=== PATIENT | female | born 1970 | race Caucasian/White ===

== ENCOUNTER 2022-08-17 14:34 | Outpatient (CLI) | payer BC, SELFPAY ==
[2022-08-17 18:30] LABS: TSH With Reflex to FT4* 0.481 uIU/mL (0.270-4.200)
[2022-08-20 01:00] LABS: Free T3 2.9 pg/mL (2.5-4.3); Total T3 114 ng/dL (80-200)
[2022-08-20 15:56] LABS: T3 Reverse - LC-MS/MS 15.5 ng/dL (9.0-27.0); T3, Ratio (T3:RT3) 6.6 (4.2-11.0); T3, Total - LC-MS/MS 103 ng/dL (80-200)
== END 2022-08-17 14:35 | disposition home or self-care (01) ==
LOC: NFLDREF 14:34
PROVIDERS: PCP Nurse Practitioner Family; Visit Provider Nurse Practitioner Family
DX: E03.9 Hypothyroidism, unspecified (principal)
CPT/HCPCS: 84443; 84480; 84481; 84482

== ENCOUNTER 2023-02-13 08:37 | Outpatient (CLI) | payer BC, SELFPAY ==
--- OUTSIDE RECORDS SUMMARY | 2023-02-13 08:40 | XMS_ITS | Continuity of Care Document ---
Author Name Unknown Organization [facility] Address [address] [place] [address] Phone Care Team Providers Care Counter Dish Carrier Name Role Phone Merlene Thomas Unavailable Unavailable Allergies, Adverse Reactions, Alerts Substance Reaction Status Criticality Penicillins Hives Active No Information Medications Medication Instructions Dosage Effective Dates (start - stop) Status Comments Mobic 15 mg tablet take 1 tablet by oral route every day with food - Active Flexeril 10 mg tablet take 1 tablet by oral route up to 3 times every day as needed for spasm. Do not drive on this medication. - Active LEVOTHYROXINE SODIUM (unknown strength) Not Available - Active Percocet 5 mg-325 mg Tab 1-2 tablets every 4-6 hours - No Longer Active Valium 5 mg Tab every 6-8 hours as needed - No Longer Active Procedures Procedure Date Office/Outpatient Visit,New, Mod 2014 X-Ray Exam Lower Spine 2-3 Views 2014 Office/outpatient visit,est, low 2007 X-ray exam lower spine 2-3 views 2007 Postop followup visit X-ray exam lower spine 2-3 views 2007 Postop followup visit X-ray exam lower spine 2-3 views 2007 Lumbar spine fusion, posterolateral Spine fusion, each add'lvertebra 2007 Lumbar spine fusion w/bone graft 2007 Spinal fusion, ea add'l interspace Insert spine seg fix, post, 3-6 seg Allograft, spine surg, structural Allograft, spine surg, morselized Autograft, spine surgery, local 008 Remove lumbar spine lamina, 1 seg Remove added spine lamina, 1 seg 2007 PA Assist Lumbar spine fusion, posterola teral PA Assist Spine fusion, each add'lverteb ra PA Assist Insert spine seg fix, post, 3- 6 seg PA Assist Remove lumbar spine lamina, 1 seg PA Assist Remove added spine lamina, 1 s eg Office consultation, moderate-high Advance Directives Directive Yes / No Effective Date File Name No Information Encounters Encounter Description Practice Location Reason(s) For Visit Diagnoses Date Provider Providers Copied on Encounter Office/Outpa tient Visit,New, [facility], [address], [place], [place], [id number], [place] tel:[phone] [facility] - [facility] OVERWEIGHTHy pertension, UnspecifiedD egeneration of lumbar or lumbosacral intervertebr al discLumbago 5 Shreyas Blunt. [facility], [address] [place] [address], [id number], [place]. tel:[phone] Referring Provider: Martin Sandhu, [facility] [address] [place] [address], [id number]. tel:[phone] Office/outpa tient visit,est, low Z [facility], [address] [place] [address], [address], [place] tel:[phone] [facility] - [facility] No Information 8 No Information Referring Provider: Grant Garcia, [facility] [address] [place] [address], [place], [address]. tel:[phone] Z [facility], [address] [place] [address], [address], [place] tel:[phone] [facility] [employer] No Information 8 No Information Referring Provider: Grant Garcia, [facility] [address] , [place], [address]. tel:[phone] Z [facility], [address], [place], [address], [place] tel:[phone] [facility] No Information 8 No Information Referring Provider: Grant Garcia, [facility] [address] [place], [address]. tel:[phone] Z [facility], [address], [place], [address], [place] tel:[phone] [facility] No Information 8 No Information Z [facility], [address], [place], [address], [place] tel:[phone] [facility] No Information 8 No Information Referring Provider: Grant Garcia, [facility] [address] [place], [address]. tel:[phone] Office consultation , moderate-hig h Z [facility], [address], [place], [address], [place] tel:[phone] [facility] No Information 8 No Information Referring Provider: Grant Garcia, [facility] [address] [place], [address]. tel:[phone] Family History Family Member Type Diagnosis Age At Onset No Information Payers Payer name Insurance type Covered green party ID [place] [id number] CCS/TPA BL [id number] Social History Type Description Quantity Date Captured Comments Alcohol Use Details Unknown Caffeine Use Details Unknown Tobacco Use Status Occasional cigarette smoker Smoking Status Current some day smoker Smoking Tobacco Use Details Cigarette: No Details Available Cigarette: No Details Available Sex Female Vital Signs Date / Time: Height Weight BMI Pulse Rate Blood Pressure Temperature Respiratory Rate Body Surface Area Head Circumference Head Circ. Percentile Wt./Sridhar. Percentile BMI percentile Pulse Ox Inhaled Ox 9:14 AM 64.00 in 93.440 kg (206.00 lbs) 35.3 6 kg/m eter (2) 80 /min 134/93 mm[Hg] Chief Complaint And Reason For Visit No Information Reason For Referral Reason For Referral No Information Plan Of Treatment Date Type Action Status Future Order: Radiology Order AP Lateral Lumbar (APLatLumb), Ordered on: Ordered History Of Present Illness Encounter Date Complaint History Of Prese nt Illness No Information Functional Status Date Functional Assessmen t Pain Score 6/10 Instructions Date Instruction Additional Infor mation Weight Management Related to Ove rweight Exercise education Related to Un specified Essential Hypertension Assessments Type Assessment Date assessment OVERWEIGHT assessment Hypertension, Unspecified assessment Degeneration of lumbar or lumbos acral intervertebral disc assessment Lumbago Patient Care Teams Name Effective Dates (start - stop) Status Members No Information
--- NOTE | 2023-02-13 08:45 | CRLHL7_ITS ---
For Patients: As a result of the Century Cures Act, medical imaging exams and procedure reports are released immediately into your electronic medical record. You may view this report before your referring provider. If you have questions, please contact your health care provider. DIGITAL DIAGNOSTIC BILATERAL MAMMOGRAM USING TOMOSYNTHESIS AND COMPUTER-AIDED DETECTION LEFT BREAST ULTRASOUND INDICATION: 52-year-old female. LEFT lateral breast pain extending to the nipple. TECHNIQUE: CC and MLO views were obtained. This digital study was evaluated with the assistance of computer-aided detection. Digital breast tomosynthesis utilized in interpretation. COMPARISON: Outside mammograms 09/15/2019. FINDINGS: Breast Composition: There are areas of scattered fibroglandular density. Small lymph node in the mid outer LEFT breast. No masses, suspicious microcalcifications, or regions of architecture distortion. Ultrasound will be performed for further evaluation of the focal breast pain laterally on the LEFT. MAMMOGRAM IMPRESSION: Negative mammograms. No significant change. ULTRASOUND TECHNIQUE: Directed LEFT breast ultrasound with this radiologist present. The LEFT breast is carefully scanned from the 3 o`clock to mid from the 2 to 3 o`clock position laterally to the level of the nipple. No underlying mass. No architecture distortion. No areas of shadowing. These findings were discussed in detail with the patient. Any further workup or follow-up should based on clinical grounds. IMPRESSION: Negative mammogram. Negative LEFT breast ultrasound. BI-RADS Category 1: Negative A lay language report of this examination will be provided to the patient. Dictated by: Nicolas Escobar MD @02/13/2023 9:45:43 AM jj/Dictated by: Nicolas Escobar MD @ 02/13/2023 9:45:00 AM (Electronically Signed)
--- NOTE | 2023-02-13 09:15 | CRLHL7_ITS ---
For Patients: As a result of the Cures Act, medical imaging exams and procedure reports are released immediately into your electronic medical record. You may view this report before your referring provider. If you have questions, please contact your health care provider. PLEASE SEE DIGITAL DIAGNOSTIC BILATERAL MAMMOGRAM PERFORMED SAME DAY CRL:dennis collins/Dictated by: Nicolas Escobar MD @ 02/13/2023 9:45:00 AM (Electronically Signed)
== END 2023-02-13 08:38 | disposition home or self-care (01) ==
LOC: MAMMO 08:38
PROVIDERS: PCP Nurse Practitioner Family; Visit Provider Nurse Practitioner Family
DX: N64.4 Mastodynia (principal)
CPT/HCPCS: 76642; 77066; G0279

== ENCOUNTER 2023-11-01 14:01 | Outpatient (CLI) | payer BC, SELFPAY ==
--- OUTSIDE RECORDS SUMMARY | 2023-11-01 14:08 | XMS_ITS | Clinical Summary ---
Author Name Unknown Organization [facility] Address [place], [place] [address] Care Team Providers Care Hose Seamer Name Role Phone Hollie Gordon DO Primary Care Provider [phone] Allergies Active Allergy Reactions Criticality Noted Date Comments Penicillins 08/27/2007 Medications Medication Sig Dispensed Refills Start Date End Date Status levothyroxine (SYNTHROID) 125 mcg tabletIndications:Unspe cified hypothyroidism Take 1 tablet by mouth before breakfast. Dosage change 05/24/2011. Fill at patient request. 90 tablet 0 09/22/2013 Active Active Problems Problem Noted Date Diagnosed Date Celiac disease 10/14/2013 Overview: EGD 09/2013 celiac disease Ingrowing nail 02/12/2008 Unspecified hypothyroidism 08/27/2007 Anxiety state, unspecified 08/27/2007 Mild dysplasia of cervix 08/27/2007 Overview: FREDDIE I 2001 Major depressive disorder, recurrent episode, un specified Other and unspecified disc disorder of lumbar re gion Immunizations Name Administration Dates Next Due Td (Age >=7 Years) 04/23/1997 Tdap 03/04/2008 Family History * Patient is adopted Medical History Relation Name Comments Unknown Other adopted Relation Name Status Comments Mother Alive Other Social History Tobacco Use Types Packs/Day Years Used Date Smoking Tobacco: Every Day Cigarettes Smokeless Tobacco: Never Tobacco Cessation:Ready to Q uit: No; Counseling Given: Yes Comments:less than 1 pack daily Alcohol Use Standard Drinks/Week Comments Yes 0 (1 standard drink = 0.6 oz pur e alcohol) occas Sex and Gender Information Value Date Recorded Sex Assigned at Not on file Gender Identity Not on file Sexual Orientation Not on file Obstetrics History Last Filed Vital Signs Vital Sign Reading Time Taken Comments Blood Pressure 123/85 10/13/2013 11:57 AM CDT Pulse 64 10/13/2013 11:57 AM CDT Temperature 36.9 ??C (98.5 ??F) 09/10/2013 3:13 PM CS T Respiratory Rate 16 12/08/2007 8:00 AM CDT Oxygen Saturation 96% 10/13/2013 11:57 AM CDT Inhaled Oxygen Concentration - - Weight 98 kg (216 lb) 09/10/2013 3:13 PM AUTOMATION DESIGN ENGINEER Height 162.6 cm (5' 4.02) 09/10/2013 3:13 PM CS T Body Mass Index 37.06 09/10/2013 3:13 PM AUTOMATION DESIGN ENGINEER Plan of Treatment Health Maintenance Due Date Last Done Comments Depression screening for age 12+ 1984 HIV for age 15-65 11/15/1987 BMI (ht and wt on same day) for age 18+ 1990 Hepatitis C screening for ag e 18-79 1990 Pap test for age 21-65 08/27/2010 8, 07/10/2006, 05/09/2004 Colonoscopy through age 75 2017 Lipids for age 45-75 2017 Mammogram for age 45-75 2017 Tetanus booster 03/04/2018 03/04/2008, 04/23/1997 Zoster (shingles) series for age 50+ (1 of 2) 2022 COVID-19 vaccine series (2022-24 season) 2023 Influenza for age 50-64 03/29/2024 Tdap Completed 03/04/2008 Pneumococcal series for age 6-64 Aged Out No longer eligible b ased on patient's age to complete this topic Medical Devices Implanted Type Area Associate Director Financial Aid Device Identifier Shelf Expiration Date Model / Serial / Lot [id number] ne Canclls Crushed 30cc [[id number]] Implanted:Qty: 1 on 12/04/2007 at [facility] Explanted:at [facility] (Quantity not on file) Spine [employer] 07/13/2012 [id number]# / [id number] / [id number] ne Canclls Crushed 30cc [[id number]] Implanted:Qty: 1 on 12/04/2007 at [facility] Explanted:at [facility] (Quantity not on file) Spine [employer] 07/01/2012 [id number]# / [id number] / [id number] 07bone Prec 14x26 [[id number]] Implanted:Qty: 1 on 12/04/2007 at [facility] Explanted:at [facility] (Quantity not on file) Spine [employer] 09/24/2011 [id number]# / [id number] / [id number] 07bone Precision 16x26 Fz [[id number]] Implanted:Qty: 1 on 12/04/2007 at [facility] Explanted:at [facility] (Quantity not on file) Spine [employer] 08/27/2011 [id number]# / [id number] / Screw Post 6.5x40mm Std Trio [employer]aco[employer]Lmbr - [id number] Implanted:Qty: 4 on 12/04/2007 at [facility] [id number] / / Screw Post 6.5x45mm Std Trio [employer]Lmbr - [id number] Implanted:Qty: 2 on 12/04/2007 at [facility] [id number] / / Connector Small Offset Implanted:Qty: 6 on 12/04/2007 at [facility] Spine [id number] / / Description:CONNECTOR SMALL OFFSET Nixon Shiela Rad 60mm 108mm Radius - [id number] Implanted:Qty: 2 on 12/04/2007 at [facility] [id number] / / Procedures Procedure Name Priority Date/Time Associated Diagnosis Comments DESK OFFICER THIN PREP PAP SCREEN IMAGED Routine 08/27/2007 4:47 PM AUTOMATION DESIGN ENGINEER Screening Malignant Neoplasms Cervix from Last 3 Months or Most Recently Relevant to Health Maintenance Results * DESK OFFICER THIN PREP PAP SCREEN IMAGED (08/27/2007 4:47 PM AUTOMATION DESIGN ENGINEER) CYTOLOGY ??CYTOPATHOLOGY REPORT ??[facility] ?? Status: Final Report ? [id number] ?? CLINICAL INFORMATION ?LMP ? : UNKNOWN ?Previous Pap Date ? : 07/10/06 ?Previous PAP Dx ? : see comment ?Previous Perry/bx date : 08/12/03, 07/24/02, 10/29/00, 04/11/99 ?Previous Colposcopy/Bx: Negative for intraepithelial lesion or ?malignancy. ?Hormone Usage ? : None ?Menstrual Status ?: see comment ?Appearance of Cervix ??: Not given ?Perry/Bx done today ?: No ?HPV Request ? : Reflex HPV test if PAP Dx ASCUS ?? SPECIMEN SOURCE ?: Cervical/vaginal ThinPrep Vial, screening ?? SPECIMEN ADEQUACY ?: Satisfactory for evaluation Endocervical ?component present. ? INTERPRETATION/RES ULT: ?Negative for intraepithelial lesion or malignancy. ? Cytology 1st Screener : ??lgb ?? Signed by: ? lgb ?? This specimen was screened by the FDA approved ThinPrep Imaging ?? System and manually reviewed. ?? NOTE: The Pap test is a screening technique, not a diagnostic ?? procedure. It is used primarily to screen for squamous cancers and ?? precursor lesions. Published studies have shown that it is subject to ?? both false negative and false positive results. The pap test should ?? not be used as the sole means to diagnose or exclude pre-malignant and ?? malignant lesions. ?? COLLECTED: 08/27/07 ?? ACCESSIONED: 08/27/07 ?? SIGNED: 09/02/07 [facility] Cervical (Cervical) 08/27/2007 4:47 PM AUTOMATION DESIGN ENGINEER 08/27/2007 4:43 PM AUTOMATION DESIGN ENGINEER Lincoln Marcum MD PATHOLOGY/CYTOLO GY [facility] [place]NAL ZIP [address] [address] from Last 3 Months or Most Recently Relevant to Health Maintenance Advance Directives * Full Code (Latest Code Status on File) Date Activated Date Inactivated Comments 12/04/2007 2:40 PM 12/08/2007 1:35 PM Care Teams Hose Seamer Relationship Specialty Start Date End Date Hollie Gordon DO PCP - General Family Practice 08/04/13
--- OUTSIDE RECORDS SUMMARY | 2023-11-01 14:08 | XMS_ITS | Clinical Summary ---
Author Name Unknown Organization [facility] Address [address] [place] [address] Care Team Providers Care Seismic Interpreter Name Role Phone Elsewhere, Pcp Primary Care Provider Unavailabl e Source Comments Patient records contain information from all sites at [facility]. For routine questions regarding patient records, call [phone] during business hours, M-F 8:00 AM - 5:00 PM Central Time. Record requests for emergency care only can be directed to [phone] at any time.[facility] Allergies Active Allergy Reactions Criticality Noted Date Comments Oxycodone Other (see comments) High 02/22/2022 Made her feel severely depressed, does not wish to ever take again Penicillins Hives (Reselect Reaction),Rash Low 08/27/2007 PENICILLINS Medications Medication Sig Dispensed Refills Start Date End Date Status fluticasone propionate (FLONASE) 50 mcg/actuation nasal spray Administer 2 sprays into each nostril daily. 1 Bottle 11 09/22/2019 Active levothyroxine (SYNTHROID, LEVOTHROID) 150 mcg tablet 0 02/15/2022 Active losartan (COZAAR) 50 mg tablet 0 02/02/2022 Active hydroCHLOROthiaz rick (HYDRODIURIL) 25 mg tablet Take 25 mg by mouth daily. 0 Active hydroCHLOROthiaz rick (HYDRODIURIL) 25 mg tablet Take 1 tablet (25 mg total) by mouth daily. 90 tablet 3 03/30/2022 Active thyroid, pork, 15 mg tablet TAKE 2 TABLETS BY MOUTH DAILY ON AN EMPTY STOMACH. TAKE IN ADDITION TO 90 MG TABLET. NO FOOD FOR ONE HOUR 60 tablet 2 07/06/2021 Active thyroid, pork, (ARMOUR) 90 mg tablet TAKE 1 TABLET BY MOUTH EVERY MORNING ON AN EMPTY STOMACH, NO FOOD FOR 1 HOUR AFTER. 30 tablet 5 05/25/2021 Active DULoxetine (CYMBALTA) [address] capsule Take 1 capsule (60 mg total) by mouth daily. 90 capsule 3 12/14/2022 Active varenicline (CHANTIX ZION) 0.5 mg (11)- 1 mg (42) tablet Take as directed on package. 53 tablet 0 01/28/2023 Active traZODone (DESYREL) 50 mg tablet Take 1 tablet (50 mg total) by mouth at bedtime. 90 tablet 3 02/04/2023 Active varenicline (CHANTIX ZION) 0.5 mg (11)- 1 mg (42) tablet Take by mouth as directed on package 53 tablet 0 02/11/2023 Active levothyroxine (SYNTHROID, LEVOTHROID) 150 mcg tablet Take 1 tablet (150 mcg total) by mouth daily. 90 tablet 1 03/07/2023 Active losartan (COZAAR) 50 mg tablet Take 1 tablet (50 mg total) by mouth daily. 90 tablet 1 03/07/2023 Active nicotine (Nicotrol NS) 10 mg/mL nasal spray Administer 1 spray to each nostril every 3 hours. 40 mL 6 04/23/2023 Active hydroCHLOROthiaz rick (HYDRODIURIL) 25 mg tablet Take 1 tablet (25 mg total) by mouth daily for 90 days. 90 tablet 0 08/22/2023 11/26/2023 Active semaglutide (Wegovy) 2.4 mg/0.75 mL pen injector injection Inject 2.4 mg under the skin once a week for 90 days 9 mL 1 09/10/2023 Active omeprazole (PriLOSEC) [address] capsule TAKE 1 CAPSULE BY MOUTH DAILY 90 capsule 3 07/26/2020 02/19/2022 Discontinue d(Therapy completed) Active Problems Problem Noted Date Diagnosed Date Bunionette Left 12/28/2019 Overview: Added automatically from request for surgery [id number] Deformity Toe Acquired Left 12/28/2019 Overview: Added automatically from request for surgery [id number] Cyst Ganglion 12/28/2019 Overview: Added automatically from request for surgery [id number] Colitis Collagenous 04/24/2018 Hypertension Essential Primary 12/08/2015 Obesity Body Mass Index 30-39.9 Adult 12/08/2015 Dependence Nicotine 11/23/2015 Gastroesophageal Reflux Disease NOS 11/23/2015 Dysphagia 11/23/2015 Sprue Celiac 11/23/2015 Rhinitis Allergic 10/29/2014 Hypothyroidism 07/30/2014 Anxiety Generalized Disorder 08/27/2007 Resolved Problems Problem Noted Date Diagnosed Date Resolved Date Cholelithiasis With Cholecystitis Chronic 02/19/2022 03/13/2022 Overview: Added automatically from request for surgery [id number] Gallstone 01/25/2022 03/13/2022 Cyst Ganglion 12/28/2019 01/14/2020 Overview: Added automatically from request for surgery [id number] Infection Upper Respiratory 05/30/2019 01/14/2020 Diarrhea Persistent Unexplained 03/27/2018 03/26/2019 Overview: Added automatically from request for surgery [id number] Impaired Fasting Glucose 12/08/2015 Diarrhea 06/08/2015 03/26/2019 Immunizations Name Administration Dates Next Due SARS-COV-2 (COVID-19) - MARLENE (J&J)(Discontinu ed) 11/03/2020 SARS-COV-2 (COVID-19) - PFIZ ER (Discontinued)(12 years or older) 06/26/2021 Td Preservative Free (TENIVAC, DECAVAC) 04/23/19 97 Td, (Adult) Unspecified 04/23/1997 Tdap 03/04/2008 Family History * Patient is adopted Medical History Relation Name Comments ADD Daughter 1 Ana Joshinner Anxiety disorder Daughter 1 Ana Susi Asthma Daughter 1 Ana Susi ADD Daughter 2 Taylor Anxiety disorder Daughter 2 Taylor Depression Daughter 2 Taylor ADD Son Nikos Anxiety disorder Son Nikos Relation Name Status Comments Daughter 1 Ana Pierceer Daughter 2 Taylor Son Nikos Social History Tobacco Use Types Packs/Day Years Used Date Smoking Tobacco: Every Day Cigarettes 10 30 Started: 12/27/1988 Smokeless Tobacco: Never Tobacco Cessation:Ready to Q uit: Not Asked; Counseling Given: Not Answered Alcohol Use Standard Drinks/Week Comments Yes 1 (1 standard drink = 0.6 oz pur e alcohol) Occasionally Humiliation, Afraid, Rape, and Kick questionnair e Answer Date Recorded Within the last year, have y ou been afraid of your partner or ex-partner? No 02/14/2022 Within the last year, have y ou been humiliated or emotionally abused in other ways by your partner or ex-partner? No Within the last year, have y ou been kicked, hit, slapped, or otherwise physically hurt by your partner or ex-partner? No 02/14/2022 Within the last year, have y ou been raped or forced to have any kind of sexual activity by your partner or ex-partner? No 02/14/2022 Social Connection and Isolation Panel [NHANES] A nswer Date Recorded In a typical week, how many times do you talk on the phone with family, friends, or neighbors? Three times a week 02/15/20 How often do you get togethe r with friends or relatives? Twice a week 02/14/2022 How often do you attend chur ch or hindu services? 1 to 4 times per year 02/14/2022 Do you belong to any clubs o r organizations such as muslim groups, unions, fraternal or athletic groups, or school groups? No 02/14/2022 How often do you attend meet ings of the clubs or organizations you belong to? Never 02/14/2022 Are you , , di vorced, , never , or living with a partner? 02/14/2022 AUDIT-C Answer Date Recorded Q1: How often do you have a drink containing alc ohol? Monthly or less 02/14/2022 Q2: How many drinks containi ng alcohol do you have on a typical day when you are drinking? 3 or 4 02/14/2022 Q3: How often do you have si x or more drinks on one occasion? Less than monthly 02/14/2022 Overall Financial Resource Strain (CARDIA) Answe r Date Recorded How hard is it for you to pa y for the very basics like food, housing, medical care, and heating? Not hard at all 02/14/2022 PHQ-2 Answer Date Recorded PHQ-2 Score 0 02/12/2020 [facility] [place] of Occupat ional Health - Occupational Stress Questionnaire Answer Date Recorded Do you feel stress - tense, restless, nervous, or anxious, or unable to sleep at night because your mind is troubled all the time - these days? Very much 02/14/2022 Exercise Vital Sign Answer Date Recorde d On average, how many days pe r week do you engage in moderate to strenuous exercise (like a brisk walk)? 0 days Minutes of Exercise per Session Not on file 02/14/2022 Hunger Vital Sign Answer Date Recorded Within the past 12 months, y ou worried that your food would run out before you got the money to buy more. Patient declined Within the past 12 months, t he food you bought just didn't last and you didn't have money to get more. Never true PRAPARE - Transportation Answer Date Re corded In the past 12 months, has l ack of transportation kept you from medical appointments or from getting medications? No 01/27 In the past 12 months, has l ack of transportation kept you from meetings, work, or from getting things needed for daily living? No 02/14/2022 Housing Stability Vital Sign Answer Mode e Recorded In the last 12 months, was t here a time when you were not able to pay the mortgage or rent on time? No 02/14/2022 In the last 12 months, how many places have you lived? 1 02/14/2022 In the last 12 months, was t here a time when you did not have a steady place to sleep or slept in a group home (including now)? No 02/14/2022 Nutrition Answer Date Recorded Nutrition: EVOO Fat Source No 02/14 On average, how many serving s of fruits and vegetables do you eat per day (serving size is equal to 1 cup or approximately the size of a tennis ball)? 0-1 02/14/2022 Dental Answer Date Recorded Dental: Regular Dentist Yes 02/15/20 Employment Answer Date Recorded Employment status Employed and actively working without restrictions 02/14/2022 Education Answer Date Recorded What is the highest level of school you have completed or the highest degree you have received? Associate degree: occupational, technical, or vocational program 01/11/2020 Sex and Gender Information Value Date Recorded Sex Assigned at Female 02/14/2022 8:55 PM CDT Gender Identity Female 01/23/2018 8:45 PM CDT Sexual Orientation Straight 01/23/2018 8: 45 PM CDT Last Filed Vital Signs Vital Sign Reading Time Taken Comments Blood Pressure 132/92 03/13/2022 11:16 AM CDT Pulse 85 03/13/2022 11:16 AM CDT Temperature 36.8 ??C (98.2 ??F) 03/13/2022 10:57 AM C DT Respiratory Rate 20 03/01/2022 6:40 AM CDT Oxygen Saturation 95% 03/01/2022 1:15 PM CDT Inhaled Oxygen Concentration - - Weight 95.8 kg (211 lb 3.2 oz) 03/01/2022 6:40 A M CDT Height 160 cm (5' 3) 01/25/2022 3:53 PM CDT Body Mass Index 37.41 01/25/2022 3:53 PM CDT Plan of Treatment Health Maintenance Due Date Last Done Comments CT Colonography 1972 Cervical Cancer Screening 1972 Cologuard 1972 HIV Screening 1972 Hepatitis C Screening 1972 Pneumococcal vaccine (0-64 y ears) (1 of 2 - PCV) 1978 Hepatitis B Vaccines (1 of 3 - 19+ 3-dose series) 11/15/1991 DTaP,Tdap,and Td Vaccines (2 - Td or Tdap) 03/04/2018 03/04/2008, 04/23/1997, 04/23/1997 Lung Cancer Screening 07/28/2020 07/28/2019 Mammogram 09/15/2020 09/15/2019, 11/23/2015 Lipid (Cholesterol) Screening 12/07/2020 12/08/2015 Office Visit for Blood Press ure Check / Re-check 06/13/2022 03/13/2022 Zoster Vaccines (1 of 2) 2022 Creatinine Level (Kidney Fun ction Test) 01/25/2023 01/25/2022, 01/14/2020, 05/26/2019, Additional history exists Potassium Level 01/25/2023 01/25/2022, 12/27, 05/26/2019, Additional history exists Sodium Level 01/25/2023 01/25/2022, 12/27, 05/26/2019, Additional history exists Thyroid Stimulating Hormone (TSH) test for thyroid function 01/25/2023 01/25/2022, 08/02/2021, 01/14/2020, Additional history exists COVID-19 Vaccine (2022-08 4 season) 2023 06/26/2021, 11/03/2020 Colonoscopy 04/18/2023 04/18/2018 Colorectal Cancer Surveillance 04/18/2023 Influenza Vaccine (#1) 2023 Depression Screening (Annual PHQ-2) 07/29/2023 Fasting Glucose for Diabetes Screening 01/25/2025 01/25/2022, 01/14/2020, 05/26/2019, Additional history exists Medical Devices Implanted Type Area Enterprise Applications Manager Device Identifier Shelf Expiration Date Model / Serial / Lot Hardware E.G. Pins/Screws/Ro ds Hardware e.g. pins/screws/r ods Back Advance Directives For more information, please contact: [phone] * Full Code (Latest Code Status on File) Date Activated Date Inactivated Comments 03/01/2022 6:37 AM 03/01/2022 3:56 PM Question Answer Comments Full Code: Discussed Care Teams Seismic Interpreter Relationship Specialty Start Date End Date Elsewhere, Pcp PCP - General Internal Medicine 02/13/23
--- OUTSIDE RECORDS SUMMARY | 2023-11-01 14:09 | XMS_ITS | Encounter Summary ---
Author Name Unknown Organization [facility] Address [address] [place] [address] Care Team Providers Care Certified Nurses Aide Name Role Phone Elsewhere, Pcp Primary Care Provider Unavailabl e Encounter Details Date Type Department Care Team (Late st Contact Info) Description 07/26/2020 Orders Only Department of Family Medicine, [facility], in [address] [phone] Elissa Murphy, P.A. Social History Tobacco Use Types Packs/Day Years Used Date Smoking Tobacco: Every Day Cigarettes 10 30 Started: 12/27/1988 Smokeless Tobacco: Never Alcohol Use Standard Drinks/Week Comments Yes 1 (1 standard drink = 0.6 oz pur e alcohol) Occasionally Humiliation, Afraid, Rape, and Kick questionnair e Answer Date Recorded Within the last year, have y ou been afraid of your partner or ex-partner? No 01/11/2020 Within the last year, have y ou been humiliated or emotionally abused in other ways by your partner or ex-partner? No Within the last year, have y ou been kicked, hit, slapped, or otherwise physically hurt by your partner or ex-partner? No 01/11/2020 Within the last year, have y ou been raped or forced to have any kind of sexual activity by your partner or ex-partner? No 01/11/2020 Social Connection and Isolation Panel [NHANES] A nswer Date Recorded Frequency of Communication with Friends and Fami ly Not on file 01/11/2020 How often do you get togethe r with friends or relatives? Three times a week 01/11/2020 Attends Restorationist Services Not on file 01/10 Active Member of Clubs or Organizations Not on f ile 01/11/2020 Attends Club or Organization Meetings Not on leonor e 01/11/2020 Marital Status Not on file 01/11/2020 AUDIT-C Answer Date Recorded Q1: How often do you have a drink containing alc ohol? 2-4 times a month 01/11/2020 Q2: How many drinks containi ng alcohol do you have on a typical day when you are drinking? 3 or 4 01/11/2020 Frequency of Binge Drinking Not on file 12/27 Overall Financial Resource Strain (CARDIA) Answe r Date Recorded How hard is it for you to pa y for the very basics like food, housing, medical care, and heating? Not hard at all 01/11/2020 PHQ-2 Answer Date Recorded PHQ-2 Score 0 02/12/2020 [facility] of Occupat ional Health - Occupational Stress Questionnaire Answer Date Recorded Feeling of Stress Very much 07/22/2019 Exercise Vital Sign Answer Date Recorde d Days of Exercise per Week Not on file 2019 On average, how many minutes do you engage in exercise at this level? 20 min 01/11/2020 Hunger Vital Sign Answer Date Recorded Worried About Running Out of Food in the Last Ye ar Never true 07/22/2019 Ran Out of Food in the Last Year Never true 07/22/2019 PRAPARE - Transportation Answer Date Re corded Lack of Transportation (Medical) No 07/22/2019 Lack of Transportation (Non-Medical) No 07/22/2019 Nutrition Answer Date Recorded Nutrition: EVOO Fat Source No 01/10 On average, how many serving s of fruits and vegetables do you eat per day (serving size is equal to 1 cup or approximately the size of a tennis ball)? 0-1 01/11/2020 Dental Answer Date Recorded Dental: Regular Dentist 12 05/21/20 20 Education Answer Date Recorded What is the highest level of school you have completed or the highest degree you have received? Associate degree: occupational, technical, or vocational program 01/11/2020 Sex and Gender Information Value Date Recorded Sex Assigned at Female 02/14/2022 8:55 PM CDT Gender Identity Female 01/23/2018 8:45 PM CDT Sexual Orientation Straight 01/23/2018 8: 45 PM CDT documented as of this encounter Plan of Treatment Not on file documented as of this encounter Visit Diagnoses Not on filedocumented in this encounter Additional Health Concerns Infection Onset Date Last Indicated Resolved Time COVID19 Pending 01/25/2022 01/25/2022 01/25/2022 5 :28 PM CDT COVID19 Pending 02/27/2022 02/27/2022 02/27/2022 9 :45 PM CDT Assessment Noted Time PHQ-9 Depression Total Score: 12 018 12:44 PM 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
--- OUTSIDE RECORDS SUMMARY | 2023-11-01 14:09 | XMS_ITS ---
Author Name Unknown Organization [facility] Address [address] [place] [address] Care Team Providers Care Equal Employment Opportunity Officer Name Role Phone Unavailable Unavailable Unavailable Surgery Details Not on file Complications Check Surgery Details section. Procedure Estimated Blood Loss Check Surgery Details section. Procedure Findings Check Surgery Details section. Procedure Specimens Taken Check Surgery Details section.
--- OUTSIDE RECORDS SUMMARY | 2023-11-01 14:09 | XMS_ITS | Continuity of Care Document ---
Author Name Unknown Organization [facility] Address [address] [place] [address] Phone Care Team Providers Care Biomathematician Name Role Phone Merlene Thomas Unavailable Unavailable Allergies, Adverse Reactions, Alerts Substance Reaction Status Criticality Penicillins Hives Active No Information Medications Medication Instructions Dosage Effective Dates (start - stop) Status Comments Flexeril 10 mg tablet take 1 tablet by oral route up to 3 times every day as needed for spasm. Do not drive on this medication. - Active Mobic 15 mg tablet take 1 tablet by oral route every day with food - Active LEVOTHYROXINE SODIUM (unknown strength) Not Available - Active Valium 5 mg Tab every 6-8 hours as needed - No Longer Active Percocet 5 mg-325 mg Tab 1-2 tablets every 4-6 hours - No Longer Active Procedures Procedure Date [...] Providers Copied on Encounter Office/Outpa tient Visit,New, [facility], [address], [place], [place], [id number], [place] tel:[phone] [facility] - [facility] OVERWEIGHTHy pertension, UnspecifiedD egeneration of lumbar or lumbosacral intervertebr al discLumbago 5 Shreyas Blunt. [facility], [address] [place] [address], [id number], [place]. tel:[phone] Referring Provider: Martin Sandhu, [facility] [address] [place] [address], [id number]. tel:[phone] Office/outpa tient visit,est, low Z [facility], [address] [place] [address], [address], [place] tel:[phone] [facility] - [facility] No Information 8 No Information Referring Provider: Grant Garcia, [facility] [address] [place] [address], [place], [address]. tel:[phone] Z [facility], [address] [place] [address], [address], [place] tel:[phone] [facility] No Information 8 No Information Referring Provider: Grant Garcia, [facility] [address] , [place], [address]. tel:[phone] Z [facility], [address], [place], [address], [place] tel:[phone] [facility] No Information 8 No Information Referring Provider: Grant Garcia, [facility] [address] [place], [address]. tel:[phone] Z [facility], [address], [place], [address], [place] tel:[phone] [facility] No Information 8 No Information Z [facility], [address], [place], [address], [place] tel:[phone] [facility] No Information 8 No Information Referring Provider: Grant Garcia, [facility] [address] [place], [address]. tel:[phone] Office consultation , moderate-hig h Z [facility], [address], [place], [address], [place] tel:[phone] [facility] No Information 8 No Information Referring Provider: Grant Garcia, [facility] [address] [place], [address]. tel:[phone] Family History Family Member Type Diagnosis Age At Onset No Information Payers Payer name Insurance type Covered libertarian [place] [id number] CCS/TPA BL [id number] Social History Type Description Quantity Date Captured [...] 6/10 Instructions Date Instruction Additional Infor mation Exercise education Related to Un specified Essential Hypertension Weight Management [facility] Assessments Type Assessment Date assessment OVERWEIGHT assessment Hypertension, Unspecified assessment Degeneration of lumbar or lumbos acral intervertebral disc assessment Lumbago Patient Care Teams Name Effective Dates (start - stop) Status Members No Information
--- OUTSIDE RECORDS SUMMARY | 2023-11-01 14:09 | XMS_ITS | Referral Summary ---
Author Name Unknown Organization [facility] Address [address] [place] [address] Care Team Providers Care Hotel Services Supervisor Name Role Phone Elsewhere, Pcp Primary Care Provider Unavailabl e Source Comments Patient records contain information from all sites at [facility]. For routine questions regarding patient records, call [phone] during business hours, M-F 8:00 AM - 5:00 PM Central Time. Record requests for emergency care only can be directed to [phone] at any time.[facility] Allergies Active Allergy Reactions Criticality Noted [...] Overview: Added automatically from request for surgery [id number] Deformity Toe Acquired Left 12/28/2019 Overview: Added automatically from request for surgery [id number] Cyst Ganglion 12/28/2019 Overview: Added automatically from request for surgery [id number] Colitis Collagenous 04/24/2018 Hypertension Essential Primary 12/08/2015 Obesity Body Mass Index 30-39.9 Adult 12/08/2015 Dependence Nicotine 11/23/2015 Gastroesophageal Reflux Disease NOS 11/23/2015 Dysphagia 11/23/2015 Sprue Celiac 11/23/2015 Rhinitis Allergic 10/29/2014 Hypothyroidism 07/30/2014 Anxiety Generalized Disorder 08/27/2007 Resolved Problems Problem Noted Date Diagnosed Date Resolved Date Cholelithiasis With Cholecystitis Chronic 02/19/2022 03/13/2022 Overview: Added automatically from request for surgery [id number] Gallstone 01/25/2022 03/13/2022 Cyst Ganglion 12/28/2019 01/14/2020 Overview: Added automatically from request for surgery [id number] Infection Upper Respiratory 05/30/2019 01/14/2020 Diarrhea Persistent Unexplained 03/27/2018 03/26/2019 Overview: Added automatically from request for surgery [id number] Impaired Fasting Glucose 12/08/2015 Diarrhea 06/08/2015 03/26/2019 Immunizations Name Administration Dates Next Due SARS-COV-2 (COVID-19) - MARLENE (J&J)(Discontinu ed) 11/03/2020 SARS-COV-2 (COVID-19) - PFIZ ER (Discontinued)(12 years or older) 06/26/2021 Td Preservative Free (TENIVAC, DECAVAC) 04/23/19 97 Td, (Adult) Unspecified 04/23/1997 Tdap 03/04/2008 Social History Tobacco Use Types Packs/Day Years [...] often do you attend chur ch or yazidism services? 1 to 4 times per year 02/14/2022 Do you belong to any clubs o r organizations such as yarsanism groups, unions, fraternal or athletic groups, or [...] Answer Date Recorded PHQ-2 Score 0 02/12/2020 [facility] [place] of Occupat ional Health - Occupational Stress [...] place to sleep or slept in a retirement (including now)? No 02/14/2022 Nutrition Answer Date [...] 01/25/2022 3:53 PM CDT Plan of Treatment Not on file Medical Devices Implanted Type Area Beam House Inspector Device Identifier Shelf Expiration Date Model / Serial / Lot Hardware E.G. Pins/Screws/Ro ds Hardware e.g. pins/screws/r ods Back Advance Directives For more information, please contact: [phone] * Full Code (Latest Code Status on File) Date Activated Date Inactivated Comments 03/01/2022 6:37 AM 03/01/2022 3:56 PM Question Answer Comments Full Code: Discussed Care Teams Hotel Services Supervisor Relationship Specialty Start Date End Date Elsewhere, Pcp PCP - General Internal Medicine 02/13/23
== END 2023-11-01 14:02 | disposition home or self-care (01) ==
PROVIDERS: PCP Nurse Practitioner Family; Visit Provider Nurse Practitioner Family
DX: E03.9 Hypothyroidism, unspecified (principal); Z13.21 Encounter for screening for nutritional disorder; Z13.0 Encounter for screening for diseases of the blood and blood-forming organs and certain disorders involving the immune mechanism
CPT/HCPCS: 80048; 80053; 82306; 82525; 82607; 82728; 83540; 83550; 83735; 84207; 84255; 84425; 84443; 84590; 84597; 84630; 85025

== ENCOUNTER 2024-01-17 15:26 | Outpatient (CLI) | payer BC, SELFPAY ==
--- OUTSIDE RECORDS SUMMARY | 2024-01-17 15:32 | XMS_ITS | Continuity of Care Document ---
Author Organization [facility] Address [address] [place] [address] Phone Care Team Providers Care Director Organizational Name Role Phone Merlene Thomas Unavailable Unavailable [...] Providers Copied on Encounter Office/Outpa tient Visit,New, [facility], [address], [place], [place], [id number], [place] tel:[phone] [facility] - [facility] OVERWEIGHTHy pertension, UnspecifiedD egeneration of lumbar or lumbosacral intervertebr al discLumbago [address] [place]. [facility], [address] [place] [address], [id number], [place]. tel:[phone] Referring Provider: Martin Sandhu, [facility] [address] [place] [address], [address]. tel:[phone] Office/outpa tient visit,est, low Z [facility], [address] [place] [address], [address], [place] tel:[phone] [facility] - [facility] No Information 8 No Information Referring Provider: Grant Garcia, [facility] [address] [place] [address], [address]. tel:[phone] Z [facility], [address] [place] [address], [address], [place] tel:[phone] [facility] No Information 8 No Information Referring Provider: Grant Garcia, [facility] [address] , [place], [address]. tel:[phone] Z [facility], [address], [place], [address], [place] tel:[phone] [facility] No Information 8 No Information Referring Provider: Grant Garcia, [facility] [address] , [place], [address]. tel:[phone] Z [facility], [address], [place], [address], [place] tel:[phone] [facility] No Information 8 No Information Z [facility], [address], [place], [address], [place] tel:[phone] [facility] No Information 8 No Information Referring Provider: Grant Garcia, [facility] [address] [place], [address]. tel:[phone] Office consultation , moderate-hig h Z [facility], [address], [place], [address], [place] tel:[phone] [facility] No Information 8 No Information Referring Provider: Grant Garcia, [facility] [address] [place], [address]. tel:[phone] Family History Family Member Type Diagnosis Age At Onset No Information Payers Payer name Insurance type Covered green party ID [place]avicencio([place] [id number] CCS/TPA BL [id number] Social History Type Description Quantity Date Captured [...]
--- OUTSIDE RECORDS SUMMARY | 2024-01-17 15:32 | XMS_ITS ---
Author Organization [facility] Address [address] [place] [address] Care Team Providers Care Phlebotomist Prn Name Role Phone Unavailable Unavailable Unavailable Surgery Details Not on file Complications Check Surgery Details section. Procedure Estimated Blood Loss Check Surgery Details section. Procedure Findings Check Surgery Details section. Procedure Specimens Taken Check Surgery Details section.
--- OUTSIDE RECORDS SUMMARY | 2024-01-17 15:32 | XMS_ITS | Continuity of Care Document ---
Author Organization [facility] Address [address] [address] [place] [address] Phone Care Team Providers Care Steam Drier Tender Name Role Phone Sujey , Zainab Unavailable Unavailable Allergies, Adverse Reactions, Alerts Substance Reaction Status Criticality oxycodone Suicidal thoughts Active No Informa tion AMOXICILLIN TRIHYDRATE HivesHives Active No In formation POTASSIUM CLAVULANATE Hives Active No Inf ormation codeine Suicidal thoughts Active No Informa tion PENICILLIN HivesHives Active No Information Penicillins HivesHives Active No Information Medications Medication Instructions Dosage Effective Dates (start - stop) Status Comments losartan 25 mg tablet take 1 tablet by oral route every day 25 MG - Active magnesium 250 mg tablet take 1 tablet by oral route every day 1 tablet - Active Wegovy 2.4 mg/0.75 mL subcutaneous pen injector inject (2.4MG) by subcutaneous route every week on the same day of each week 2.4 MG - Active hydrochlorothiazide 12.5 mg tablet take 1 tablet by oral route every day 12.5 MG - Active duloxetine 60 mg capsule,delayed release take 1 capsule by oral route every day 60 MG - Active phentermine 30 mg capsule take 1 capsule by oral route every day before breakfast 30 MG - Active omeprazole 40 mg capsule,delayed release take 1 capsule by oral route every day before a meal 40 MG - Active montelukast 10 mg tablet take 1 tablet b y oral route every day 10 MG - Active cetirizine 10 mg tablet take 1 tablet by oral route every day 10 MG - Active levothyroxine 150 mcg tablet take 1 tablet by oral route every day 150 MCG - Active Fish Oil 1,000 mg (120 mg-180 mg) capsule - Active Cholestyramine Light 4 gram powder for susp in a packet take 1 packet by oral route 2 times every day dissolved in 2 to 6 ounces of water or noncarbonated beverage before meals 4 G - Active Procedures Procedure Date Ugi Endo; W/bx 1/mx Level Iv-surg Path Gross/micro New Level 4 Offic/outpt E&m New Mod-hi Routine Serum Collection Gg; Iga, Igd, Igg, Igm, Ea Bld Ct; Hg/pltlt Ct Auto/compl 19 Comp Metabolic Panel C-reactive Prot Ferritin Folic Acid; Serum Hep B Core Antibody Hepatitis B Surface Antibody Ag-immunoassay; Hep B Surface 9 Bilirubin; Direct Iron Iron Binding Capacity Cyanocobalamin Advance Directives Directive Yes / No Effective Date File Name No Information Encounters Encounter Description Practice Location Reason(s) For Visit Diagnoses Date Provider Providers Copied on Encounter [facility] STEPHANIE, [address] [address], [place], [place], [id number], [place] tel:[phone] [facility] No Information 4 Sujey MD Lamb. [address] [facility] [address], [place], [place], [id number], [place]. tel:[phone] [facility] STEPHANIE, [address] [address], [place], [place], [id number], [place] tel:[phone] [facility] GI Symptoms or Concerns (chief complaint) Celiac diseaseCeliac disease 4 Sujey Lamb. [address] [facility], [place], [place], [id number], [place]. tel:[phone] Referring Provider: Referral Self, USE FOR SELF REFERRALS. New Level 4 [facility], [address] [address], [place], [place], [id number], [place] tel:[phone] [facility] GI Symptoms or Concerns (chief complaint) Celiac diseaseCopper deficiencyGlob us sensation 4 Luis Eduardo Beck. [address] [facility], [place], [place], [id number], [place]. tel:[phone] Referring Provider: Nano Galicia NP , [address] [place] [address], [address]. tel:[phone] [facility], [address] [address], [place], [place], [id number], [place] tel:[phone] [facility] No Information 4 Kyle Giron. [address] [facility], [facility] [address], [place], [place], [id number], [place]. tel:[phone] [facility], [address] [address], [place], [place], [id number], [place] tel:[phone] [facility] No Information 9 No Information Offic/outpt E&m [facility], [address] [address], [place], [place], [id number], [place] tel:[phone] [facility] GI Symptoms or Concerns (chief complaint) Chronic diarrheaCollag enous colitisCeliac diseaseDietary counseling and surveillanceEs sential (primary) hypertension 9 No Information Referring Provider: Referral Self, USE FOR SELF REFERRALS. Family History Family Member Type Diagnosis Age At Onset No Information Immunizations Vaccine Date Status Comments SARS-COV-2 (COVID-19) vaccin e, mRNA, spike protein, LNP, preservative free, 30 mcg/0.3mL dose administered Note: [facility] bi-direct ional interface ; Source: Other Registry SARS-COV-2 (COVID-19) vaccin e, vector non-replicating, recombinant spike protein-Ad26, preservative free, 0.5 mL administered Note: [facility] bi- directional interface ; Source: Other Registry tetanus toxoid, reduced diphtheria toxoid, and acellular pertussis vaccine, adsorbed administered Note: [facility] b i-directional interface ; Source: Other Registry tetanus toxoid, reduced diphtheria toxoid, and acellular pertussis vaccine, adsorbed administered Note: [facility] b i-directional interface ; Source: Other Registry tetanus and diphtheria toxoi ds, adsorbed, preservative free, for adult use (5 Lf of tetanus toxoid and 2 Lf of diphtheria toxoid) administered Note: [facility] bi-direct ional interface ; Source: Other Registry Payers Payer name Insurance type Covered constitution party ID Authordedraa maye(s) [employer] [facility] [id number] Social History Type Description Quantity Date Captured Comments Sex Female Smoking Status No Information Chief Complaint And Reason For Visit No Information Reason For Referral Reason For Referral No Information Plan Of Treatment Date Type Action Status Goal Lifestyle education regardin g diet completed Referral Ordered: EGD Appointment date/timeframe: 12/20/2023 ordered Referral Ordered: Stool Test Panel, Comprehensive Appointment date/timeframe: -today ordered History Of Present Illness Encounter Date Complaint History Of Prese nt Illness GI Symptoms or Concerns GI Symptoms or Concerns A very p leasant 53-year-old female who presents to establish care at the request of her primary care nurse practitioner, Nano Galicia. The patient had been seen here in 2019 and has a past medical history significant for celiac disease and collagenous colitis. She reports that in the past she had multiple gastrointestinal complaints such as refractory diarrhea from collagenous colitis, and abdominal bloating and discomfort, which improved recently after she started Wegovy. Her bowel habit is now regular and she has 1 bowel movement every day. However, she recently had extensive blood work done with her primary care CANV[employer] GOODS FABRICATOR given significant fatigue and generalized feeling of low energy on which she was found to have low copper levels (normal at around 18, the patient's values were about 40). She is wondering if there are any gastrointestinal causes of that. Along with that, the patient also endorses an intermittent feeling of globus in the upper esophagus. Denies dysphagia on GI Symptoms or Concerns Patsy Anderson is a very pleasant 48-year-old female with a past medical history of celiac disease, depression, GERD, hypertension, obesity, tobacco abuse, and recent diagnosis of collagenous colitis, who is here today to be seen at [facility] for refractory symptoms of chronic diarrhea.The patient notes that she has had diarrhea for 3 years. She reports anywhere from 3 to 10 bowel movements per day. They are essentially water and read it as Riverside 7. Very rarely she will have a Riverside 6 stool. She has positive nocturnal stools. She has had some accidents. She has no blood in her stool. She eventually was seen by GI provider in [place], [place]. She underwent a colonoscopy 6 months ago, and she states that she was diagnosed with collagenous colitis. We are working to get these records. She states that she was put on budesonide to treat this, but did not have a significant improvement in a number of stools. She reports that perhaps there was slight mo Functional Status Date Functional Assessmen t No Information Instructions Date Instruction Additional Infor irma Therefore, we agreed on the following plan:1. EGD with esophageal and duodenal biopsies.2. Initiate zeub-vxn-lfhdumd copper 2 mg daily. Follow up laboratories with PCP in 3 months. Celiac laboratories can be tested at the same time.3. Return to the GI clinic as needed. Related to Celiac disease Good to meet you toranulfo ferreira!Check labs todayWe can arrange for stool studies to be done locally and the results sent to me.Start the cholestyramine 1 packet twice daily. Let's give this 2 weeks to see if this helps. If it binds you up too much you can cut to half a packet twice daily. If it does not help enough we can double the dose.Start citrucel fiber powder. Take 1 tablespoon in glass of water daily.You can take the imodium (loperamide) as needed throughout the day (you can take up to 8 pills daily)We will follow up in 6 weeks. If things are not improved we will repeat an upper endoscopy and colonoscopyCall with questions Related to Chronic diarrhea Lifestyle education regarding di et Related to Dietary counseling and surveillance Assessments Type Assessment Date No Information Patient Care Teams Name Effective Dates (start - stop) Status Members No Information
--- OUTSIDE RECORDS SUMMARY | 2024-01-17 15:32 | XMS_ITS | Clinical Summary ---
Author Organization [facility] Address [place], [place] [address] Care Team Providers Care Assistant General Manager Name Role Phone Hollie Gordon DO Primary Care Provider Allergies Active Allergy Reactions Criticality Noted Date [...] 98 kg (216 lb) 09/10/2013 3:13 PM ASSISTANT PLANT CONTROLLER Height 162.6 cm (5' 4.02) 09/10/2013 3:13 PM CS T Body Mass Index 37.06 09/10/2013 3:13 PM ASSISTANT PLANT CONTROLLER Plan of Treatment Health Maintenance Due Date [...] (1 of 2) 2022 COVID-19 vaccine series (2022- season) 2023 06/26/2021, 11/03/2020 Influenza for age 50-64 03/29/2024 Tdap Completed 03/04/2008 Pneumococcal series for age 6-64 Aged Out No longer eligible b ased on patient's age to complete this topic Medical Devices Implanted Type Area Appellate Law Clerk Device Identifier Shelf Expiration Date Model / Serial / Lot [id number] ne Canclls Crushed 30cc [[id number]] Implanted:Qty: 1 on 12/04/2007 at [facility] Explanted:at [facility] (Quantity not on file) Spine [employer] 07/13/2012 [id number]# / [id number] / [id number] Canclls Crushed 30cc [[id number]] Implanted:Qty: 1 on 12/04/2007 at [facility] Explanted:at [facility] (Quantity not on file) Spine [employer] 07/01/2012 [id number]# / [id number] / [id number] 07bone Prec 14x26 [[id number]] Implanted:Qty: 1 on 12/04/2007 at [facility] Explanted:at [facility] (Quantity not on file) Spine [employer] 09/24/2011 [id number]# / [id number] / [id number] 07bone Precision 16x26 Fz [[id number]] Implanted:Qty: 1 on 12/04/2007 at [facility] Explanted:at [facility] (Quantity not on file) Spine [employer] 08/27/2011 [id number]# / [id number] / Screw Post 6.5x40mm Std Trio [employer] - [id number] Implanted:Qty: 4 on 12/04/2007 at [facility] [id number]# / / Screw Post 6.5x45mm Std Trio [employer] - [id number] Implanted:Qty: 2 on 12/04/2007 at [facility] [id number]# / / Connector Small Offset Implanted:Qty: 6 on 12/04/2007 at [facility] Spine [id number] / / Description:CONNECTOR SMALL OFFSET Nixon Shiela Rad 60mm 108mm Radius - [id number] Implanted:Qty: 2 on 12/04/2007 at [facility] [id number]# / / Procedures Procedure Name Priority Date/Time Associated Diagnosis Comments CHIEF CREW SCHEDULER THIN PREP PAP SCREEN IMAGED Routine 08/27/2007 4:47 PM ASSISTANT PLANT CONTROLLER Screening Malignant Neoplasms Cervix from Last 3 Months or Most Recently Relevant to Health Maintenance Results * CHIEF CREW SCHEDULER THIN PREP PAP SCREEN IMAGED (08/27/2007 4:47 PM ASSISTANT PLANT CONTROLLER) CYTOLOGY ??CYTOPATHOLOGY REPORT ??[facility] ?? Status: Final Report ? [id number] ?? CLINICAL INFORMATION ?LMP ? : UNKNOWN ?Previous Pap Date ? : 07/10/06 ?Previous PAP Dx ? : see comment ?Previous Baraboo/bx date : 08/12/03, 07/24/02, 10/29/00, 04/11/99 ?Previous Colposcopy/Bx: Negative for intraepithelial lesion or ?malignancy. ?Hormone Usage ? : None ?Menstrual Status ?: see comment ?Appearance of Cervix ??: Not given ?Baraboo/Bx done today ?: No ?HPV Request ? [...] 08/27/07 ?? ACCESSIONED: 08/27/07 ?? SIGNED: 09/02/07 [facility] Cervical (Cervical) 08/27/2007 4:47 PM ASSISTANT PLANT CONTROLLER 08/27/2007 4:43 PM ASSISTANT PLANT CONTROLLER Lincoln Marcum MD PATHOLOGY/CYTOLO GY [facility] INTERNAL ZIP [address] [place] [id number] from Last 3 Months or Most Recently Relevant to Health Maintenance Advance Directives * Full Code (Latest Code Status on File) Date Activated Date Inactivated Comments 12/04/2007 2:40 PM 12/08/2007 1:35 PM Care Teams Assistant General Manager Relationship Specialty Start Date End Date Hollie Gordon DO PCP - General Family Practice 08/04/13
--- OUTSIDE RECORDS SUMMARY | 2024-01-17 15:32 | XMS_ITS | Encounter Summary ---
Author Organization [facility] Address [address] [place] [address] Care Team Providers Care Jacquard Loom Carpet Weaver Name Role Phone Elsewhere, Pcp Primary Care Provider Unavailabl e Encounter Details Date Type Department Care Team (Late st Contact Info) Description 07/26/2020 Orders Only Department of Family Medicine, [facility], in [address] [address] Elissa Murphy, P.A. Social History Tobacco Use Types Packs/Day Years Used Date Smoking Tobacco: Every Day Cigarettes 10 35.1 Started: 12/27/1988 Smokeless Tobacco: Never Alcohol Use [...] relatives? Three times a week 01/11/2020 Attends Shinto Services Not on file 01/10 Active Member [...] Answer Date Recorded PHQ-2 Score 0 02/12/2020 [facility] - Occupational [...] Depression Total Score: 12 018 12:44 PM DIRECTOR OF SOCIAL WORK documented as of this encounter Care Teams Jacquard Loom Carpet Weaver Relationship Specialty Start Date End Date Elsewhere, Pcp PCP - General Internal Medicine 02/13/23 documented as of this encounter
--- OUTSIDE RECORDS SUMMARY | 2024-01-17 15:32 | XMS_ITS | Referral Summary ---
Author Organization [facility] Address [address] [place] [address] Care Team Providers Care Intramural Director Name Role Phone Elsewhere, Pcp Primary Care Provider Unavailabl e Source Comments Patient records contain information from all sites at [facility]. For routine questions regarding patient records, call [phone] during business hours, M-F 8:00 AM - 5:00 PM Central Time. Record requests for emergency care only can be directed to [phone] at any time.[facility] Allergies Active Allergy Reactions Criticality Noted Date Comments Gluten Other (see comments) 11/01/2023 celiac Oxycodone Other (see comments) High 02/22/2022 Made her feel severely depressed, does not wish to ever take again Penicillins Hives (Reselect Reaction),Rash Low 08/27/2007 PENICILLINS Medications Medication Sig Dispensed Refills Start Date End Date Status fluticasone propionate (FLONASE) 50 mcg/actuation nasal spray Administer 2 sprays into each nostril daily. 1 Bottle 11 09/22/2019 Active levothyroxine (SYNTHROID, LEVOTHROID) 150 mcg tablet 02/15/2022 Active losartan (COZAAR) 50 mg tablet 02/02/2022 Active hydroCHLOROthia zide (HYDRODIURIL) 25 mg tablet Take 25 mg by mouth daily. Active hydroCHLOROthia zide (HYDRODIURIL) 25 mg tablet Take 1 tablet [...] Take as directed on package. 53 tablet 01/28/2023 Active traZODone (DESYREL) 50 mg tablet Take 1 tablet (50 mg total) by mouth at bedtime. 90 tablet 3 02/04/2023 Active varenicline (CHANTIX ZION) 0.5 mg (11)- 1 mg (42) tablet Take by mouth as directed on package 53 tablet 02/11/2023 Active levothyroxine (SYNTHROID, LEVOTHROID) 150 mcg tablet Take 1 tablet (150 mcg total) by mouth daily. 90 tablet 1 03/07/2023 Active losartan (COZAAR) 50 mg tablet Take 1 tablet (50 mg total) by mouth daily. 90 tablet 1 03/07/2023 Active nicotine (Nicotrol NS) 10 mg/mL nasal spray Administer 1 spray to each nostril every 3 hours. 40 mL 6 04/23/2023 Active hydroCHLOROthia zide (HYDRODIURIL) 25 mg tablet Take 1 tablet (25 mg total) by mouth daily for 90 days. 90 tablet 08/22/2023 Active semaglutide (Wegovy) 2.4 mg/0.75 mL pen injector injection Inject 2.4 mg under the skin once a week for 90 days 9 mL 1 09/10/2023 Active fluconazole (DIFLUCAN) 150 mg tablet Take 1 tablet (150 mg total) by mouth every 3 (three) days for 2 doses. 2 tablet 11/01/2023 Active losartan (COZAAR) 25 mg tablet Take 1 tablet (25 mg total) by mouth daily. 90 tablet 3 11/02/2023 Active semaglutide (Wegovy) 1.7 mg/0.75 mL pen injector injection Inject 1.7 mg under the skin once a week. 3 mL 6 11/25/2023 Active semaglutide (Wegovy) 2.4 mg/0.75 mL pen injector injection 2.4 mg (0.75 mL) subcutaneously every week for 90 days 9.75 mL 12/27/2023 Active omeprazole (PriLOSEC) [address] capsule TAKE 1 CAPSULE BY MOUTH DAILY 90 capsule 3 07/26/2020 2 Discontinue d(Therapy completed) Active Problems Problem Noted Date Diagnosed Date Bunionette Left 12/28/2019 Overview: Added automatically from request for surgery [id number] Deformity Toe Acquired Left 12/28/2019 Overview: Added automatically from request for surgery [id number] Cyst Ganglion 12/28/2019 Overview: Added automatically from request for surgery [id number] Colitis Collagenous 04/24/2018 Hypertension Essential Primary 12/08/2015 Obesity Body Mass Index 30-39.9 Adult 12/08/2015 Dependence Nicotine 11/23/2015 Gastroesophageal Reflux Disease NOS 11/23/2015 Dysphagia 11/23/2015 Sprue Celiac 11/23/2015 Rhinitis Allergic 10/29/2014 Hypothyroidism 07/30/2014 Anxiety Generalized Disorder 08/27/2007 Resolved Problems Problem Noted Date Diagnosed Date Resolved Date Cholelithiasis With Cholecystitis Chronic 02/19/2022 03/13/2022 Overview: Added automatically from request for surgery [id number] Gallstone 01/25/2022 03/13/2022 Cyst Ganglion 12/28/2019 01/14/2020 Overview: Added automatically from request for surgery [id number] Infection Upper Respiratory 05/30/2019 01/14/2020 Diarrhea Persistent Unexplained 03/27/2018 03/26/2019 Overview: Added automatically from request for surgery [id number] Impaired Fasting Glucose 12/08/2015 Diarrhea 06/08/2015 03/26/2019 Immunizations Name Administration Dates Next Due SARS-COV-2 (COVID-19) - HomeZada (J&J)(Discontinu ed) 11/03/2020 SARS-COV-2 (COVID-19) - PFIZ ER (Discontinued)(12 years or older) 06/26/2021 Td Preservative Free (TENIVAC, DECAVAC) 04/23/19 97 Td, (Adult) Unspecified 04/23/1997 Tdap 03/04/2008 Social History Tobacco Use Types Packs/Day Years Used Date Smoking Tobacco: Every Day Cigarettes 10 35.1 Started: 12/27/1988 Smokeless Tobacco: Never Tobacco Cessation:Ready [...] week 02/14/2022 How often do you attend [facility] or catholic services? 1 to 4 times per year 02/14/2022 Do you belong to any clubs o r organizations such as advent groups, unions, fraternal or athletic groups, or [...] Answer Date Recorded PHQ-2 Score 0 02/12/2020 [facility] Occupat [facility] - Occupational Stress Questionnaire Answer Date Recorded [...] place to sleep or slept in a halfway (including now)? No 02/14/2022 Nutrition Answer Date [...] on file Medical Devices Implanted Type Area Court Magistrate Device Identifier Shelf Expiration Date Model / Serial / Lot Hardware E.G. Pins/Screws/Ro ds Hardware e.g. pins/screws/r ods Back Procedures Procedure Name Priority Date/Time Associated Diagnosis Comments THYROID-STIMULATING HORMONE-SENSITIVE (S-TSH) STAT 01/25/2022 4:35 PM CDT COMPREHENSIVE METABOLIC PANEL, S/P STAT 01/25/2022 4:34 PM CDT BI BREAST SCREENING BILATERAL WITH TOMOSYNTHESIS RAD - Routine (most inpatients and all outpatients) 09/15/2019 4:00 PM CONTROLS DESIGN ENGINEER Screening Mammogram Breast Cancer CT CHEST WITH IV CONTRAST RAD - Routine (most inpatients and all outpatients) 07/28/2019 9:36 AM CONTROLS DESIGN ENGINEER Other Diseases Of Mediastinum Not Elsewhere Classified Pulmonary Nodule Computed Tomography Indeterminate COLONOSCOPY 04/18/2018 12:43 PM CDT LIPID PANEL, S Routine 12/08/2015 7:45 AM CDT from Last 3 Months or Most Recently Relevant to Health Maintenance Results * (ABNORMAL) S-TSH (Thyroid-Stimulating Hormone - Sensitive) (01/25/2022 4:35 PM CDT) TSH, Sensitive 38.9(H) 0.3 - 4.2 mIU/L 01/25/2022 5:48 PM CDT [facility] Blood (Blood, Venous) 01/25/2022 4:35 PM CDT 01/25/2022 4:35 PM CDT Palmer Strong M.D. LAB BLOOD ADD-ON [facility] [address] [place] [address], [facility] [address] [place] [id number] * (ABNORMAL) Comprehensive Metabolic Panel (01/25/2022 4:34 PM CDT) Potassium, P 3.6 3.6 - 5.2 mmol/L 01/25/2022 5:08 PM CDT [facility] Sodium, P 136 135 - 145 mmol/L 01/25/2022 5:08 PM CDT [facility] Chloride, P 99 98 - 107 mmol/L 01/25/2022 5:08 PM CDT [facility] Bicarbonate, P 15(L) 22 - 29 mmol/L 01/25/2022 5:25 PM CDT [facility] Anion Gap, P 22(H) 7 - 15 01/25/2022 5:25 PM CDT [facility] BUN (Blood Urea Nitrogen), P 11 6 - 21 mg/dL 01/25/2022 5:08 PM CDT [facility] Creatinine 1.38(H) 0.59 - 1.04 mg/dL 01/25/2022 5:08 PM CDT [facility] eGFR-Black/ 52(L) >=60 mL/min/BS A 01/25/2022 5:08 PM CDT [facility] Comment: ----ADDITIONAL INFORMATION---- Estimated GFR calculated using the 2009 CKD_EPI creatinine equation. eGFR Non-Black/ 45(L) >=60 mL/min/BS A 01/25/2022 5:08 PM CDT [facility] Comment: ----ADDITIONAL INFORMATION---- Estimated GFR calculated using the 2009 CKD_EPI creatinine equation. Calcium, Total, P 10.1(H) 8.6 - 10.0 mg/dL 01/25/2022 5:08 PM CDT [facility] Glucose, P 135 70 - 140 mg/dL 01/25/2022 5:08 PM CDT [facility] Protein, Total, P 8.6(H) 6.3 - 7.9 g/dL 01/25/2022 5:08 PM CDT [facility] Albumin, P 5.1(H) 3.5 - 5.0 g/dL 01/25/2022 5:08 PM CDT [facility] Aspartate Aminotransferase (AST), P 23 8 - 43 U/L 01/25/2022 5:08 PM CDT [facility] Alkaline Phosphatase, P 90 35 - 104 U/L 01/25/2022 5:08 PM CDT [facility] Alanine Aminotransferase (ALT), P 17 7 - 45 U/L 01/25/2022 5:08 PM CDT [facility] Bilirubin, Total, P 0.6 <=1.2 mg/dL 01/25/2022 5:08 PM CDT [facility] Blood (Blood, Venous) 01/25/2022 4:34 PM CDT 01/25/2022 4:34 PM CDT Palmer Strong M.D. LAB BLOOD ADD-ON [facility] [address] [place] [address], [facility] [address] [place] [phone] * BI Breast Screening Bilateral with Tomosynthesis (09/15/2019 4:00 PM CONTROLS DESIGN ENGINEER) Anatomical Region Laterality Modality Breast, Breast Imaging RST L OS, Breast Imaging ARZ LOS, Breast Imaging FLA LOS Bilateral Mammography 09/16/2019 8:06 AM CONTROLS DESIGN ENGINEER Impressions 09/16/2019 8:07 AM CONTROLS DESIGN ENGINEER Negative. RECOMMENDATION: ??Annual Screening Mammogram ASSESSMENT: ??BI-RADS: 1: Negative. Narrative 09/16/2019 8:07 AM CONTROLS DESIGN ENGINEER EXAM: ??BI BREAST SCREENING BILATERAL WITH TOMOSYNTHESIS Current study was evaluated with a Computer Aided Detection (CAD) system. INDICATION: ??Screening mammogram. COMPARISON: ??Prior exam(s) were available and reviewed for comparison. DENSITY: ??b. There are scattered areas of fibroglandular density. FINDINGS: ??No mammographic findings of malignancy. Procedure Note Marli Nielsen M.D. - 09/16/2019 EXAM: BI BREAST SCREENING BILATERAL WITH TOMOSYNTHESIS Current study was evaluated with a Computer Aided Detection (CAD) system. INDICATION: Screening mammogram. COMPARISON: Prior exam(s) were available and reviewed for comparison. DENSITY: b. There are scattered areas of fibroglandular density. FINDINGS: No mammographic findings of malignancy. IMPRESSION: Negative. RECOMMENDATION: Annual Screening Mammogram ASSESSMENT: BI-RADS: 1: Negative. Johnny Maria M.D. IMG BI PROCEDURES * CT Chest with IV Contrast (07/28/2019 9:36 AM CONTROLS DESIGN ENGINEER) Anatomical Region Laterality Modality Chest, Thoracic RST LOS, Tho racic ARZ LOS, Thoracic ARZ LOS, Thoracic FLA LOS N/A Computed Tomography 07/28/2019 9:44 AM CONTROLS DESIGN ENGINEER Impressions 07/28/2019 9:51 AM CONTROLS DESIGN ENGINEER 1. Benign pericardial fluid accounts for the findings on the prior neck CT. 2. Findings suggestive of respiratory bronchiolitis, possibly smoking related. Narrative 07/28/2019 9:51 AM CONTROLS DESIGN ENGINEER EXAM: CT CHEST WITH IV CONTRAST 3D/MIPS: 3D Post-Processing performed on a dependent workstation. COMPARISON: Correlated with prior neck CT dated 07/24/2019. FINDINGS: There is a small amount of nonloculated anterior mediastinal fluid just anterior to the ascending aorta which typically represents benign pericardial fluid. This appear artifactually loculated on the prior neck CT. The heart is normal. No enlarged mediastinal or hilar lymph nodes. Very faint groundglass micronodules in the upper lungs can be seen with respiratory bronchiolitis, usually smoking-related. 3 mm solid pulmonary nodule in the left lower lobe (image 334). No pleural effusion or pneumothorax. Cholelithiasis. Procedure Note Araceli Whitehead M.D. - 07/28/2019 EXAM: CT CHEST WITH IV CONTRAST 3D/MIPS: 3D Post-Processing performed on a dependent workstation. COMPARISON: Correlated with prior neck CT dated 07/24/2019. FINDINGS: There is a small amount of nonloculated anterior mediastinalfluid just anterior to the ascending aorta which typically represents benign pericardial fluid. This appear artifactually loculated on the prior neckCT. The heart is normal. No enlarged mediastinal or hilar lymph nodes. Very faint groundglass micronodules in the upper lungs can be seen with respiratory bronchiolitis, usually smoking-related. 3 mm solid pulmonarynodule in the left lower lobe (image 334). No pleural effusion or pneumothorax. Cholelithiasis. IMPRESSION: 1. Benign pericardial fluid accounts for the findings on the prior neckCT. 2. Findings suggestive of respiratory bronchiolitis, possibly smokingrelated. Nicolas Love P.A.-C., M.S., M.P.H. IMG CT PROCEDURES * COLONOSCOPY (04/18/2018 12:43 PM CDT) Narrative Procedure Note Jairo Alejandre M.D. - 04/18/2018 12:43 PM CDT [facility] Patient Name: [place] Procedure Date: 04/18/2018 12:43 PM Date of : 1970 Age: 47 Gender: Female Procedure: Colonoscopy Providers: Johnny Shannon (Ordering Provider) Referring Provider: Johnny Maria Pre-op Diagnoses: Chronic diarrhea Post-op Diagnoses: - Hemorrhoids found on perianal exam. - The entire examined colon is normal. Biopsied. Recommendation: - Discharge patient to home. - Written discharge instructions were provided to the patient. - Await pathology results. Findings: Hemorrhoids were found on perianal exam. The colon (entire examined portion) appeared normal. Biopsies weretaken with a cold forceps for histology. Medicines: Fentanyl 300 micrograms IV, Midazolam 6 mg IV Complications: No immediate complications. Procedure Details: The patient was seen, evaluated, and history reviewed. Airway and heart and lung exams were performed and were satisfactory for plannedsedation care. The risks, benefits and alternatives for the procedure and sedation were discussed andinformed consent was obtained. A procedural pause was conducted in the presence of assisting personnelto verify the correct patient identity and procedureto be performed. Throughout the procedure, the patient's blood pressure, pulse, and oxygen saturations were monitored continuously. The Colonoscope was introduced under directvision through the anus and advanced to the terminalileum, with identification of the appendiceal orificeand IC valve. The colonoscopy was performed without difficulty. The patient tolerated the procedure well. The quality of the bowel preparation wasgood. Sedation: Moderate (conscious) sedation was administered by the endoscopy nurse and supervised by the endoscopist. The following parameters were monitored: oxygen saturation, heart rate, blood pressure, andresponse to care. Total physician intraservice time was [address] Jairo Alejandre, 04/18/2018 1:43:27 PM This report has been signed electronically. Number of Addenda: 1 Note Initiated On: 04/18/2018 12:43 PM Addendum Number: 1 Addendum Date: 05/04/2018 4:10:10 PM Pathology: Diagnosis A) Small bowel, terminal ileum, biopsy: NORMAL ILEAL MUCOSA. B) Colon, right, biopsy: COLLAGENOUS COLITIS. C) Colon, left, biopsy: COLLAGENOUS COLITIS. Refer back to Primary Care for management. Dr. Jairo Alejandre, 05/04/2018 4:11:07 PM This report has been signed electronically. Jairo Alejandre M.D. GI PROCEDURE ORDERAB LES * (ABNORMAL) Lipid Panel (12/08/2015 7:45 AM CDT) Cholesterol, Total 163 <=199 MGDL POWERCHART Comment: 2014 National Lipid Association recommendations for Total Cholesterol in adults ages 18 and up: Desirable <200 mg/dL Borderline high 200-239 mg/dL High 240 mg/dL 2014 National Lipid Association recommendations for Total Cholesterol in children ages 2 to 17. Acceptable <170 mg/dL Borderline High 170-199 mg/dL High 200 mg/dL HX HDL 31(L) >=50 MGDL POWERCHART Comment: 2014 National Lipid Association recommendations for HDL-C in adults ages 18 and up: Low <40 mg/dL (Men) Low <50 mg/dL (Women) 2014 National Lipid Association recommendations for HDL-C in children ages 2 to 17. Low <40 mg/dL Borderline Low 40-45 mg/dL Acceptable >45 mg/dL Triglycerides 160(H) <=149 MGDL POWERCHART Comment: 2014 National Lipid Association recommendations for Triglycerides in adults ages 18 and up: Normal <150 mg/dL Borderline High 150-199 mg/dL High 200-499 mg/dL Very High 500 mg/dL 2014 National Lipid Association recommendations for Triglycerides in children ages 2 to 9. Acceptable <75 mg/dL Borderline High 75-99 mg/dL High 100 mg/dL 2014 National Lipid Association recommendations for Triglycerides in children ages 10 to 17. Acceptable <90 mg/dL Borderline High 90-129 mg/dL High 130 mg/dL Trigs >400mg/dL: Triglycerides >400 mg/dL. Calculated LDL cholesterol is not valid. Non-HDL cholesterol may be used for risk assessment when triglycerides are >400mg/dL. Calculated LDL 100 <=129 MGDL POWERCHART Comment: 2014 National Lipid Association recommendations for LDL-C in adults ages 18 and up: Desirable <100 mg/dL Above desirable 100-129 mg/dL Borderline high 130-159 mg/dL High 160-189 mg/dL Very High 190 mg/dL 2014 National Lipid Association recommendations for LDL-C in children ages 2 to 17. Acceptable <110 mg/dL Borderline High 110-129mg/dL High 130 mg/dL LDL-C >190mg/dL: The markedly elevated LDL level is suggestive of a genetic condition such as familial hypercholesterolemia(FH) or familial defective apolipoprotein B-100 (FDB). Molecular genetic testing for FH and FDB is available through [facility]: FH/ADH Genetic Reflex Panel (test ADHP). Acquired (non-genetic) causes of markedly increased LDL cholesterol include cholestatic liver disease due to the presence of LpX. If a genetic form of hypercholesterolemia is suspected, family studies including biochemical testing for lipids (total cholesterol,triglycerides, LDL cholesterol and HDL cholesterol) are recommended. ??Please contact the laboratory at or the on-line test catalog at [facility] for information about how to order these tests or to speak with a genetic counselor. Further interpretation would require clinical information. Total Cholesterol/HDL Ratio 5 POWERCHART Blood 12/08/2015 7:45 AM CDT Johnny Maria M.D. LAB BLOOD ADD-ON POWERCHART from Last 3 Months or Most Recently Relevant to Health Maintenance Advance Directives For more information, please contact: [phone] * Full Code (Latest Code Status on File) Date Activated Date Inactivated Comments 03/01/2022 6:37 AM 03/01/2022 3:56 PM Question Answer Comments Full Code: Discussed Care Teams Intramural Director Relationship Specialty Start Date End Date Elsewhere, Pcp PCP - General Internal Medicine 02/13/23
--- OUTSIDE RECORDS SUMMARY | 2024-01-17 15:32 | XMS_ITS | Clinical Summary ---
Author Organization [facility] Address [address] [place] [address] Care Team Providers Care Waste Water Operator Name Role Phone Elsewhere, Pcp Primary Care Provider Unavailabl e Source Comments Patient records contain information from all sites at [facility]. For routine questions regarding patient records, call [phone] during business hours, M-F 8:00 AM - 5:00 PM Central Time. Record requests for emergency care only can be directed to [phone] at any time.[facility] Allergies Active Allergy Reactions Criticality Noted [...] Overview: Added automatically from request for surgery [id number] Deformity Toe Acquired Left 12/28/2019 Overview: Added automatically from request for surgery [id number] Cyst Ganglion 12/28/2019 Overview: Added automatically from request for surgery [id number] Colitis Collagenous 04/24/2018 Hypertension Essential Primary 12/08/2015 Obesity Body Mass Index 30-39.9 Adult 12/08/2015 Dependence Nicotine 11/23/2015 Gastroesophageal Reflux Disease NOS 11/23/2015 Dysphagia 11/23/2015 Sprue Celiac 11/23/2015 Rhinitis Allergic 10/29/2014 Hypothyroidism 07/30/2014 Anxiety Generalized Disorder 08/27/2007 Resolved Problems Problem Noted Date Diagnosed Date Resolved Date Cholelithiasis With Cholecystitis Chronic 02/19/2022 03/13/2022 Overview: Added automatically from request for surgery [id number] Gallstone 01/25/2022 03/13/2022 Cyst Ganglion 12/28/2019 01/14/2020 Overview: Added automatically from request for surgery [id number] Infection Upper Respiratory 05/30/2019 01/14/2020 Diarrhea Persistent Unexplained 03/27/2018 03/26/2019 Overview: Added automatically from request for surgery [id number] Impaired Fasting Glucose 12/08/2015 Diarrhea 06/08/2015 03/26/2019 Immunizations Name Administration Dates Next Due SARS-COV-2 (COVID-19) - Solazyme (J&J)(Discontinu ed) 11/03/2020 SARS-COV-2 (COVID-19) - PFIZ ER (Discontinued)(12 years or older) 06/26/2021 Td Preservative Free (TENIVAC, DECAVAC) 04/23/19 97 Td, (Adult) Unspecified 04/23/1997 Tdap 03/04/2008 Family History * Patient is adopted Medical History Relation Name Comments ADD Daughter 1 Ana Goldman Anxiety disorder Daughter 1 Ana Goldman Asthma Daughter 1 Ana Goldman ADD Daughter 2 Taylor Anxiety disorder Daughter [...] often do you attend chur ch or muslim services? 1 to 4 times per year 02/14/2022 Do you belong to any clubs o r organizations such as hindu groups, unions, fraternal or athletic groups, or [...] Answer Date Recorded PHQ-2 Score 0 02/12/2020 [facility] - Occupational Stress [...] place to sleep or slept in a m[facility]p (including now)? No 02/14/2022 Nutrition Answer Date [...] 08/02/2021, 01/14/2020, Additional history exists COVID-19 Vaccine (3 - 2022-2 4 season) 2023 06/26/2021, 11/03/2020 Colonoscopy 04/18/2023 04/18/2018 Colorectal Cancer Surveillance 04/18/2023 Influenza Vaccine (#1) 2023 Depression Screening (Annual PHQ-2) 07/29/2023 Fasting Glucose for Diabetes Screening 01/25/2025 01/25/2022, 01/14/2020, 05/26/2019, Additional history exists Medical Devices Implanted Type Area Dynamiter Device Identifier Shelf Expiration Date Model / Serial / Lot Hardware E.G. Pins/Screws/Ro ds Hardware e.g. pins/screws/r ods Back Procedures Procedure Name Priority Date/Time Associated Diagnosis Comments THYROID-STIMULATING HORMONE-SENSITIVE (S-TSH) STAT 01/25/2022 4:35 PM CDT COMPREHENSIVE METABOLIC PANEL, S/P STAT 01/25/2022 4:34 PM CDT BI BREAST SCREENING BILATERAL WITH TOMOSYNTHESIS RAD - Routine (most inpatients and all outpatients) 09/15/2019 4:00 PM BUS CLEANER Screening Mammogram Breast Cancer CT CHEST WITH IV CONTRAST RAD - Routine (most inpatients and all outpatients) 07/28/2019 9:36 AM BUS CLEANER Other Diseases Of Mediastinum Not Elsewhere Classified [...] CDT Palmer Strong M.D. LAB BLOOD ADD-ON [facility] [address] [place] [address], [facility] [place] [address] [place] [phone] * (ABNORMAL) Comprehensive Metabolic Panel (01/25/2022 4:34 [...] CDT Palmer Strong M.D. LAB BLOOD ADD-ON [facility] [address] [place] [address], [facility] [place] [address] [phone] * BI Breast Screening Bilateral with Tomosynthesis (09/15/2019 4:00 PM BUS CLEANER) Anatomical Region Laterality Modality Breast, Breast Imaging RST L OS, Breast Imaging ARZ LOS, Breast Imaging FLA LOS Bilateral Mammography 09/16/2019 8:06 AM BUS CLEANER Impressions 09/16/2019 8:07 AM BUS CLEANER Negative. RECOMMENDATION: ??Annual Screening Mammogram ASSESSMENT: ??BI-RADS: 1: Negative. Narrative 09/16/2019 8:07 AM BUS CLEANER EXAM: ??BI BREAST SCREENING BILATERAL WITH TOMOSYNTHESIS [...] Chest with IV Contrast (07/28/2019 9:36 AM BUS CLEANER) Anatomical Region Laterality Modality Chest, Thoracic RST LOS, Tho racic ARZ LOS, Thoracic ARZ LOS, Thoracic FLA LOS N/A Computed Tomography 07/28/2019 9:44 AM BUS CLEANER Impressions 07/28/2019 9:51 AM BUS CLEANER 1. Benign pericardial fluid accounts for the findings on the prior neck CT. 2. Findings suggestive of respiratory bronchiolitis, possibly smoking related. Narrative 07/28/2019 9:51 AM BUS CLEANER EXAM: CT CHEST WITH IV CONTRAST 3D/MIPS: [...] - 04/18/2018 12:43 PM CDT [facility] Patient Name: La Caba Procedure Date: [...] for FH and FDB is available through [facility]: FH/ADH Genetic Reflex Panel (test ADHP). Acquired (non-genetic) causes of markedly increased LDL cholesterol include cholestatic liver disease due to the presence of LpX. If a genetic form of hypercholesterolemia is suspected, family studies including biochemical testing for lipids (total cholesterol,triglycerides, LDL cholesterol and HDL cholesterol) are recommended. ??Please contact the laboratory at or the on-line test catalog at [facility] for information about how to order these tests or to speak with a genetic counselor. Further interpretation would require clinical information. Total Cholesterol/HDL Ratio 5 POWERCHART Blood 12/08/2015 7:45 AM CDT Johnny Maria M.D. LAB BLOOD ADD-ON POWERCHART from Last 3 Months or Most Recently Relevant to Health Maintenance Advance Directives For more information, please contact: [phone] * Full Code (Latest Code Status on File) Date Activated Date Inactivated Comments 03/01/2022 6:37 AM 03/01/2022 3:56 PM Question Answer Comments Full Code: Discussed Care Teams Waste Water Operator Relationship Specialty Start Date End Date Elsewhere, Pcp PCP - General Internal Medicine 02/13/23
[2024-01-17 18:34] LABS: Bacterial Vaginosis* POSITIVE (Negative); Candida glab/krus NOT DETECTED (No Detected); Candida species NOT DETECTED (No Detected); Trichomonas vaginalis NOT DETECTED (No Detected)
== END 2024-01-17 15:27 | disposition home or self-care (01) ==
PROVIDERS: PCP Nurse Practitioner Family; Visit Provider Obstetrics & Gynecology
DX: N39.46 Mixed incontinence (principal); N89.8 Other specified noninflammatory disorders of vagina; F52.0 Hypoactive sexual desire disorder; Z12.4 Encounter for screening for malignant neoplasm of cervix
CPT/HCPCS: 81513; 83001; 84270; 84402; 84403; 84439; 84443; 87086; 87481; 87661

== ENCOUNTER 2024-02-21 13:55 | Outpatient (CLI) | payer BC, SELFPAY ==
--- OUTSIDE RECORDS SUMMARY | 2024-02-24 09:38 | XMS_ITS | Clinical Summary ---
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 Plan of Treatment Health Maintenance Due Date Last Done Comments Depression screening for age 12+ 1984 HIV for age 15-65 11/15/1987 BMI (ht and wt on same day) for age 18+ 1990 Hepatitis C screening for age 18-79 1990 Colonoscopy through age 75 2017 Lipids for age 45-75 2017 Mammogram for age 45-75 2017 Tetanus booster 03/04/2018 03/04/2008, 04/23/1997 Zoster (shingles) series for age 50+ (1 of 2) 2022 COVID-19 vaccine series (2022- season) 2023 06/26/2021, 11/03/2020 Influenza for age 50-64 03/29/2024 Pap test for age 21-65 01/16/2027 , 01/17/2024, 08/27/2007, Additional history exists Tdap Completed 03/04/2008 Pneumococcal series for age 6-64 Aged Out No longer eligible based on patient's age to complete this topic Medical Devices Implanted Type Area Cdl Instructor Device Identifier Shelf Expiration Date Model / Serial / Lot [id number] ne Canclls Crushed 30cc [[id number]] Implanted:Qty: 1 on 12/04/2007 at [facility] Explanted:at [facility] (Quantity not on file) Spine [employer] 07/13/2012 [id number]# / [id number] / [id number] ne Canclls Crushed 30cc [[id number]] Implanted:Qty: 1 on 12/04/2007 at [facility] Explanted:at [facility] (Quantity not on file) Spine [employer] 07/01/2012 [id number]# / [id number] / [id number] 07bone Prec 14x26 [[id number]] Implanted:Qty: 1 on 12/04/2007 at [facility] Explanted:at [facility] (Quantity not on file) Spine [employer] 09/24/2011 [id number]# / [id number] / [id number] 07bone Precision 16x26 Fz [[id number]] Implanted:Qty: 1 on 12/04/2007 at [facility] Explanted:at [facility] (Quantity not on file) Spine [employer] 08/27/2011 [id number]# / [id number] / Screw Post 6.5x40mm Std Trio Thoraco-Lmbr - [id number] Implanted:Qty: 4 on 12/04/2007 at [facility] [id number] / / Screw Post 6.5x45mm Std Trio Thoraco-Lmbr - [id number] Implanted:Qty: 2 on 12/04/2007 at [facility] [id number] / / Connector Small Offset Implanted:Qty: 6 on 12/04/2007 at [facility] Spine [id number] / / Description:CONNECTOR SMALL OFFSET Nixon Shiela Rad 60mm 108mm Radius - [id number] Implanted:Qty: 2 on 12/04/2007 at [facility]ine [facility] [id number] / / Procedures Procedure Name Priority Date/Time Associated Diagnosis Comments LAB TRACKING EVENT Routine 01/17/2024 3: 30 PM CDT POSTAL DELIVERY OFFICER THIN PREP PAP SCREEN IMAGED Routine 01/17/2024 3:30 PM CDT HPV THIN PREP Routine 01/17/2024 3:30 PM CDT from Last 3 Months Results * LAB TRACKING EVENT (01/17/2024 3:30 PM CDT) Other (Other) Client Collect / Unknown 01/17/2024 3:30 PM CDT 01/20/2024 3:37 PM CDT Rachael Yancey MD LAB BILL ONLY [facility] [address] [place] [address], * POSTAL DELIVERY OFFICER THIN PREP PAP SCREEN IMAGED (01/17/2024 3:30 PM CDT) Case Report Gynecologic Cytology Report ? Case: [id number] ? Authorizing Provider: ??Rachael Yancey MD ?? Collected: ? 01/17/2024 1530 ? Ordering Location: ? [facility] ?Received: ?01/21/2024 0857 ? First Screen: ?Luz Maria Fitzpatrick ? Specimen: ?POSTAL DELIVERY OFFICER ThinPrep Vial Screening, Cervical ? 01/27/2024 7:40 PM CDT [facility] INTERPRETATION/ RESULT NEGATIVE FOR INTRAEPITHELIAL LESION OR MALIGNANCY (NIL) (none) 01/27/2024 7:40 PM CDT [facility] NISM(S) Shift in lynn suggestive of bacterial vaginosis 01/27/2024 7:40 PM CDT [facility] SPECIMEN ADEQUACY Satisfactory for evaluation Endocervical component present 01/27/2024 7:40 PM CDT [facility] HPV REQUEST HPV and PAP 01/27/2024 7:40 PM CDT [facility] Date of LMP 01/27/2024 7:40 PM CDT [facility] Comment:unknown Last Pap Date 01/27/2024 7:40 PM CDT [facility] Comment:unknown Last Pap Result 7:40 PM CDT [facility] Comment:unknown Abnormal Pap or [place] Bx in last 5 years No 01/27/2024 7:40 PM CDT [facility] Menstrual Status Ablation 01/27/2024 7:40 PM CDT [facility] [place] Bx Done Today No 01/27/2024 7:40 PM CDT [facility] Additional Information 01/27/2024 7:40 PM CDT [facility] Comment: Interpreted at [facility] Laboratory - [address], [place] [address] Automated Review Successful 01/27/2024 7:40 PM CDT [facility] Comment:Specimen processed s uccessfully by automated direct customer service representative device, ThinPrep Imaging System, [employer] ANCILLARY TESTING POSTAL DELIVERY OFFICER HPV Ordered, Please see separate report 01/27/2024 7:40 PM CDT [facility] Note The pap test is a screening technique, not a diagnostic procedure. It is used primarily to screen for squamous cancers and precursor lesions. Published studies have shown that it is subject to both false negative and false positive results. The pap test should not be used as the sole means to diagnose or exclude pre-malignant and malignant lesions. 01/27/2024 7:40 PM CDT [facility] Other (Cervical) 01/17/2024 3:30 PM CDT 01/21/2024 8:57 AM CDT Rachael Yancey MD PATHOLOGY/CYTOLOG Y Performing Organization Address [facility] Co de Phone Number [facility] [address] [place] [address], * HPV HIGH RISK (01/17/2024 3:30 PM CDT) TYPE 16 Negative Negative 01/22/2024 2:02 PM CDT [facility] TYPE 18 Negative Negative 01/22/2024 2:02 PM CDT [facility] OTHER HIGH RISK TYPES Negative Negative 01/22/2024 2:02 PM CDT [facility] Other (Cervical) 01/17/2024 3:30 PM CDT 01/21/2024 8:57 AM CDT Narrative [facility] - 01/22/2024 2:02 PM CDT HPV types 16, 18, 31, 33, 35, 39, 45, 51, 52, 56, 58, 59, 66 and 68 DNA were undetectable or below the pre-set threshold. Methodology: Alfredo Austin 4800 HPV Test Rachael Yancey MD MICROBIOLOGY Performing Organization Address [facility] Co de Phone Number [facility] [address] [place] [address], from Last 3 Months Advance Directives * Full Code (Latest Code Status on File) Date Activated Date Inactivated Comments 12/04/2007 2:40 PM 12/08/2007 1:35 PM Care Teams Mud Engineer Relationship Specialty Start Date End Date Hollie Gordon DO PCP - General Family Practice 08/04/13
--- OUTSIDE RECORDS SUMMARY | 2024-02-24 09:38 | XMS_ITS | Continuity of Care Document ---
Author Organization [facility] Address [address] [place] [address] Phone Care Team Providers Care Manager Occupational Name Role Phone Merlene Thomas Unavailable Unavailable [...] Providers Copied on Encounter Office/Outpa tient Visit,New, [facility], [address], [place], [place], [id number], [place] tel:[phone] [facility] - [facility] OVERWEIGHTHy pertension, UnspecifiedD egeneration of lumbar or lumbosacral intervertebr al discLumbago [address]unt. [facility], [address] [place] [address], [id number], [place]. tel:[phone] Referring Provider: Martin Sandhu, [facility] [address] [place] [address], [id number]. tel:[phone] Office/outpa tient visit,est, low Z [facility], [address] [place] [address], [address], [place] tel:[phone] [facility] - [facility] No Information 8 No Information Referring Provider: Grant Garcia, [facility] [address] [place] [address], [address]. tel:[phone] Z [facility], [address] [place] [address], [address], [place] tel:[phone] [facility] No Information 8 No Information Referring Provider: Grant Garcia, [facility] [address] , [place], [address]. tel:[phone] Z [facility], [address], [place], [address], [place] tel:[phone] [facility] No Information 8 No Information Referring Provider: Grant Garcia, [facility] [address] , [place], [address]. tel:[phone] Z [facility], [address], [place], [address], [place] tel:[phone] [facility] No Information 8 No Information Z [facility], [address], [place], [address], [place] tel:[phone] [facility] No Information 8 No Information Referring Provider: Grant Garcia, [facility] [address] [place], [address]. tel:[phone] Office consultation , moderate-hig h Z [facility], [address], [place], [address], [place] tel:[phone] [facility] No Information 8 No Information Referring Provider: Grant Garcia, [facility] [address] [place], [address]. tel:[phone] Family History Family Member Type Diagnosis Age At Onset No Information Payers Payer name Insurance type Covered democrat [place]icencio([place] [id number] CCS/TPA BL [id number] Social History Type Description Quantity Date Captured [...]
== END 2024-02-21 13:56 | disposition home or self-care (01) ==
LOC: NFLDREF 02-24 09:36
PROVIDERS: PCP Nurse Practitioner Family; Referring Provider Nurse Practitioner Family; Visit Provider Obstetrics & Gynecology
DX: E03.9 Hypothyroidism, unspecified (principal)
CPT/HCPCS: 84439; 84443

== ENCOUNTER 2024-03-26 15:11 | Outpatient (CLI) | payer BC, SELFPAY | END 2024-03-26 15:12 | disposition home or self-care (01) | LOC: NFLDREF 15:12 | PROVIDERS: PCP Nurse Practitioner Family; Visit Provider Obstetrics & Gynecology | DX: E03.9 Hypothyroidism, unspecified (principal) | CPT/HCPCS: 84439; 84443 ==

== ENCOUNTER 2024-06-12 14:20 | Outpatient (CLI) | payer BC, SELFPAY | END 2024-06-12 14:21 | disposition home or self-care (01) | LOC: NFLDREF 06-16 23:43 | PROVIDERS: PCP Nurse Practitioner Family; Referring Provider Nurse Practitioner Family; Visit Provider Obstetrics & Gynecology | DX: E03.9 Hypothyroidism, unspecified (principal) | CPT/HCPCS: 84443 ==

== ENCOUNTER 2025-01-15 10:05 | Outpatient (CLI) | payer BC, SELFPAY | END 2025-01-15 10:06 | disposition home or self-care (01) | LOC: NFLDREF 01-20 00:40 | PROVIDERS: PCP Registered Nurse; Referring Provider Registered Nurse; Visit Provider Registered Nurse | DX: E03.9 Hypothyroidism, unspecified (principal); I10 Essential (primary) hypertension; E78.5 Hyperlipidemia, unspecified | CPT/HCPCS: 80048; 80061; 84443 ==